=== PATIENT | female | born 1980 | race Caucasian/White ===

== ENCOUNTER 2016-12-24 09:45 | Observation (INO) | payer MEDICAID ==
[~2016-12-24] VITALS: Ht 157.5 cm; Wt 82.6 kg
[2016-12-24] MEDS ORDERED: TERBUTALINE 1 MG/ML VIAL SUBQ SCH (10:00)
[2016-12-24] MEDS ORDERED: TERBUTALINE 1 MG/ML VIAL SUBQ ONE (10:33)
== END 2016-12-24 16:45 | disposition left against medical advice (07) ==
LOC: MLD 09:45
PROVIDERS: ADMIT Obstetrics & Gynecology; ATTEND Obstetrics & Gynecology
DX: O26.893 Other specified pregnancy related conditions, third trimester (principal); R10.9 Unspecified abdominal pain; M54.9 Dorsalgia, unspecified; Z3A.32 32 weeks gestation of pregnancy
CPT/HCPCS: 76805; G0378; J3105; Q0092